=== PATIENT | female | born 1990 | race Caucasian/White ===

== ENCOUNTER → 2024-08-25 | Outpatient (CLI) | payer BC ==
[2024-08-25 13:51] LABS: Alanine Aminotransferase 16 U/L (7-40); Albumin 4.4 g/dL (3.2-4.8); Alkaline Phosphatase 65 U/L (46-116); Anion Gap 5 (5-15); Aspartate Aminotransferase 10 U/L (13-40); BUN/Creatinine Ratio 8.6 (10.0-20.0); Blood Urea Nitrogen 6 mg/dL (9-23); Carbon Dioxide 28 mmol/L (20-31); Chloride 106 mmol/L (98-107); Glucose 96 mg/dL (74-106); LDL Cholesterol 147 mg/dL (< 100); Sodium 139 mmol/L (136-145); Triglycerides 157 mg/dL (< 150)
[2024-08-25 13:52] LABS: Bilirubin, Total 0.4 mg/dL (0.2-1.0); Cholesterol 193 mg/dL (< 200); HDL Cholesterol 38 mg/dL (40-59)
== END | disposition home or self-care (01) ==
LOC: LAB 12:30
PROVIDERS: ATTEND Nurse Practitioner
DX: E78.5 Hyperlipidemia, unspecified (principal); R73.9 Hyperglycemia, unspecified
CPT/HCPCS: 36415; 80053; 80061; 83036

== ENCOUNTER 2024-12-11 03:32 | Emergency (ER) | payer BC ==
[~2024-12-11] VITALS: Ht 154.9 cm; Wt 136.5 kg
[2024-12-11 04:09] VITALS: BP 146/96; PULSE 94; RESP 16; TEMP 99.2; O2SAT 95
[2024-12-11] MEDS ORDERED: IBUP-1456 PO (04:13)
[2024-12-11] MEDS ORDERED: CYCL-837 PO (04:13)
--- NOTE | 2024-12-11 04:13 | ED.PDOC ---
Back pain HPI HPI Comments 34-YEAR-OLD FEMALE PRESENTS TO ER WITH COMPLAINTS OF BACK PAIN X 2 HOURS. PATIENT REPORTS THAT SHE WOKE UP WITH 7/10 LEFT LOWER THORACIC BACK PAIN 2 HOURS PRIOR TO ARRIVAL TO ER. STATES THAT SHE TOOK IBUPROFEN FOR HER PAIN WITH SOME RELIEF. PATIENT PRESENTS TO ER AMBULATORY ON ARRIVAL, WITH STEADY GAIT, IN NO DISTRESS. DENIES FEVER, BODY ACHES, CHILLS, NIGHT SWEATS, TRAUMA/FALLS/HEAVY LIFTING, NAUSEA/VOMITING, NUMBNESS/TINGLING, SHORTNESS OF BREATH, CHEST PAIN, EXTREMITY WEAKNESS, CHANGES IN URINATION/BM OR ANY FURTHER SYMPTOMS/COMPLAINTS Chief Complaint: Back Pain Time Seen by MD: 03:33 Primary Care Provider: Dr. Shah Reviewed Notes: Nurses Notes, Medications, Allergies Allergies: Coded Allergies: NO KNOWN ALLERGIES (Unverified , 12/11/24) Home Meds Active Scripts Ibuprofen (Ibuprofen) 800 Mg Tab, 1 TAB PO TID PRN, #30 TAB 0 Refills Prov:TONNY REED 12/11/24 Cyclobenzaprine Hcl (Cyclobenzaprine Hcl) 5 Mg Tab, 1 TAB PO QHSP, #14 TAB 0 Refills Prov:TONNY REED 12/11/24 Information Source: Patient Mode of Arrival: Ambulatory Past Medical History PAST MEDICAL HISTORY: Anemia, Asthma Surgical History: Denies all surgeries FILLING TECHNICIAN History: No Pertinent FILLING TECHNICIAN History Family History Family History: Unknown Social History Smoker: Non-Smoker Alcohol: Occasionally Drugs: Denies Drug Use Lives In: Home Constitutional: denies: chills, diaphoresis, fatigue, fever, malaise, sweats, weakness, others EENTM: denies: blurred vision, double vision, ear bleeding, ear discharge, ear drainage, ear pain, ear ringing, eye pain, eye redness, hearing loss, mouth pain, mouth swelling, nasal discharge, nose bleeding, nose congestion, nose pain, photophobia, tearing, throat pain, throat swelling, voice changes, others Respiratory: denies: cough, hemoptysis, orthopnea, SOB at rest, shortness of breath, SOB with excertion, stridor, wheezing, others Cardiovascular: denies: chest pain, dizzy spells, diaphoresis, Dyspnea on exertion, edema, irregular heart beat, left arm pain, lightheadedness, palpitations, PND, syncope, others Gastrointestinal: denies: abdomen distended, abdominal pain, blood streaked bowels, constipated, diarrhea, dysphagia, difficulty swallowing, hematemesis, melena, nausea, poor appetite, poor fluid intake, rectal bleeding, rectal pain, vomiting, others Genitourinary: denies: abnormal vagina bleeding, burning, dyspareunia, dysuria, flank pain, frequency, hematuria, incontinence, pain, , vagina disc harge, urgency, others Neurological: denies: dizziness, fainting, headache, left sided numbness, left sided weakness, numbness, paresthesia, pre-existing deficit, right sided numbness, right sided weakness, seizure, speech problems, tingling, tremors, weakness, others Musculoskeletal: reports: others ( STATED IN HPI) Integumetry: denies: bruises, change in color, change in hair/nails, dryness, laceration, lesions, lumps, rash, wounds, others Allergic/Immunocompromised: denies: Difficulty Healing, Frequent Infections, Hives, Itching, others Hematologic/Lymphatic: denies: anemia, blood clots, easy bleeding, easy bruising, swollen glands, others Endocrine: denies: excessive hunger, excessive sweating, excessive thirst, excessive urination, flushing, intolerance to cold, intolerance to heat, unexplained weight gain, unexplained weight loss, others Psychiatric: denies: anxiety, bipolar disorder, depression, hopeless, panic disorder, schizophrenia, sleepless, suicidal, others Physical Exam General Appearance: No Apparent Distress, Obese HEENT: PERRL/EOMI Neck: Full Range of Motion, Non-Tender, Normal Respiratory: Chest Non-Tender, Lungs Clear, No Accessory Muscle Use, No Respiratory Distress, Normal Breath Sounds Cardiovascular: No Murmur, No Gallop, Regular Rate/Rhythm Breast Exam: Deferred Gastrointestinal: Non Tender, No Pulsatile Mass, Soft Genitalia: Deferred Pelvic: Deferred Rectal: Deferred Extremities: Normal capillary refill, Normal range of motion Musculoskeletal : Extremity Location: Back (SLIGHT TTP TO LEFT LOWER THORACIC PARASPINALS NOTED. NO BONY TENDERNESS APPRECIATED. GAIT INTACT WITHOUT ABNORMALITY) Neurologic: Alert, plant operations coordinator II-XII nml as Tested, No Motor Deficits, Normal Affect, Normal Mood, No Sensory Deficits Cerebellar Function: Normal Reflexes: Normal Skin: Dry, Normal Color, Warm Peripheral Pulses: 2+ femoral (R), 2+ femoral (L), 2+ dorsalis pedis (R), 2+ dorsalis pedis (L), 2+ Radial (R), 2+ Radial (L), 2+ Brachial (R), 2+ Brachial (L) Lymphatic: No Adenopathy Was a procedure done? Was a procedure done?: No Sedation Sedation?: No Back Pain Differential Dx Differential Diagnosis: AAA, Fracture, Urolithiasis, Other (NEUROVASCULAR INJURY) X-Ray, Labs, Meds, VS Vital Signs Date Time Temp Pulse Resp B/P (MAP) Pulse Ox O2 Delivery O2 Flow Rate FiO2 12/11/24 04:09 99.2 94 16 146/96 (113) 95 99.2 12/11/24 04:09 94 16 95 Room Air 12/11/24 03:52 99.2 94 16 146/96 (113) 95 TORADOL 60 MG IM ORDERED PATIENT REPORTED IMPROVEMENT IN SYMPTOMS AND IN NO DISTRESS PRIOR TO DISCHARGE ADVISED ON REST/NO STRENUOUS ACTIVITY ADVISED TO FOLLOW UP WITH PCP IN 1-2 DAYS PATIENT VERBALIZED UNDERSTANDING AND AGREEABLE WITH CURRENT PLAN OF CARE ADVISED TO RETURN TO ER IMMEDIATELY IF SYMPTOMS WORSEN Time of 1ST Reevaluation: 03:54 Reevaluation 1ST: N/A Patient Education/Counseling: Diagnosis, Treatment, Prognosis, Need For Follow Up Family Education/Counseling: No Family Present Departure 1 Departure Time of Disposition: 04:12 Impression: Primary Impression: Strain of thoracic spine Disposition: 01 HOME / SELF CARE / HOMELESS Condition: Stable e-Prescriptions Ibuprofen (Ibuprofen) 800 Mg Tab 1 TAB PO TID PRN, #30 TAB 0 Refills Prov: TONNY REED 12/11/24 Cyclobenzaprine Hcl (Cyclobenzaprine Hcl) 5 Mg Tab 1 TAB PO QHSP, #14 TAB 0 Refills Prov: TONNY REED 12/11/24 Discharged With: Self Critical Care Note Critical Care Time?: No Stability Stability form required: No Heart Score Heart Score: Heart Score Response (Comments) Value History N/A 0 EKG N/A 0 Age N/A 0 Risk Factors N/A 0 Troponin N/A 0 Total 0 TONNY REED Dec 11, 2024 04:13
[2024-12-11] MEDS: KETOROLAC TROMETH 60MG/2ML VIAL IM ONE (04:16)
[2024-12-12] MEDS ORDERED: OMEP-434 PO (22:19)
[2024-12-12] MEDS ORDERED: MONT-8 PO (22:19)
[2024-12-12] MEDS ORDERED: LISI20TA56 PO (22:19)
== END 2024-12-11 04:21 | disposition home or self-care (01) ==
LOC: ER 03:32
DX: S29.012A Strain of muscle and tendon of back wall of thorax, initial encounter (principal); J45.909 Unspecified asthma, uncomplicated; X58.XXXA Exposure to other specified factors, initial encounter; Y93.89 Activity, other specified; Y92.89 Other specified places as the place of occurrence of the external cause; Y99.8 Other external cause status
CPT/HCPCS: 96372; 99283; J1885

== ENCOUNTER 2024-12-12 14:02 | Inpatient (IN) | payer BC ==
[~2024-12-12] VITALS: Ht 154.9 cm; Wt 139.6 kg
[~2024-12-12 14:02] MED LIST: CYCL-837 PO; IBUP-1456 PO
--- NOTE | 2024-12-12 15:08 | ED.PDOC ---
Back pain HPI HPI Comments A 34 YEAR OLD FEMALE PRESENTS TO THE ED WITH COMPLAINT OF MIDDLE BACK PAIN. PATIENT STATES SHE HAS BEEN EXPERIENCING MIDDLE BACK PAIN FOR THE PAST 2 DAYS. PT WAS IN THIS ER YESTERDAY MORNING AND WAS GIVEN MOTRIN AND MUSCLE RELAX MEDICATION. PATIENT REPORTS SHE BEGAN TO EXPERIENCE EPIGASTRIC PAIN THAT RADIATES TO HER MIDDLE BACK TODAY, PROMPTING HER TO COME TO THE ED FOR EVALUATION ONCE AGAIN. MOTRIN AND MUSCLE RELAX MEDICATION DOES NOT HELP HER MIDDLE BACK PAIN AND EPIGASTRIC PAIN. PATIENT DENIES FEVER, CHILLS, SHORTNESS OF BREATH, CHEST PAIN, NAUSEA, VOMITING, HEADACHE, OR OTHER COMPLAINTS. NO OTHER SYMPTOMS OR MODIFYING FACTORS AT THIS TIME. PATIENT IS ALERT, ORIENTED X 4, AND HAS STEADY GAIT. Chief Complaint: Back Pain Time Seen by MD: 14:14 Primary Care Provider: ZOE Wilson Notes: Nurses Notes, Medications, Allergies Allergies: Coded Allergies: NO KNOWN ALLERGIES (Unverified , 12/11/24) Home Meds Active Scripts Ibuprofen (Ibuprofen) 800 Mg Tab, 1 TAB PO TID PRN, #30 TAB 0 Refills Prov:TONNY REED 12/11/24 Cyclobenzaprine Hcl (Cyclobenzaprine Hcl) 5 Mg Tab, 1 TAB PO QHSP, #14 TAB 0 Refills Prov:TONNY REED 12/11/24 Information Source: Patient Mode of Arrival: Ambulatory Timing: Days Duration: Since onset, Days Location of Back pain: (B) Thoracic Severity: Moderate Prehospital treatment: None Quality: Aching, Cramping Onset: Spontaneous History of: None Modifying Factors: Movement Associated signs and symptoms: Abdominal Pain Past Medical History PAST MEDICAL HISTORY: Anemia, Asthma, GERD, HTN Surgical History: Denies all surgeries JET ENGINE MECHANIC History: No Pertinent JET ENGINE MECHANIC History Family History Family History: Reviewed,noncontributory to illness Social History Smoker: Non-Smoker Alcohol: Occasionally Drugs: Denies Drug Use Lives In: Home Constitutional: denies: chills, diaphoresis, fatigue, fever, malaise, sweats, weakness, others EENTM: denies: blurred vision, double vision, ear bleeding, ear discharge, ear drainage, ear pain, ear ringing, eye pain, eye redness, hearing loss, mouth pain, mouth swelling, nasal discharge, nose bleeding, nose congestion, nose pain, photophobia, tearing, throat pain, throat swelling, voice changes, others Respiratory: denies: cough, hemoptysis, orthopnea, SOB at rest, shortness of breath, SOB with excertion, stridor, wheezing, others Cardiovascular: denies: chest pain, dizzy spells, diaphoresis, Dyspnea on exertion, edema, irregular heart beat, left arm pain, lightheadedness, palpitations, PND, syncope, others Gastrointestinal: reports: abdominal pain; denies: abdomen distended, blood streaked bowels, constipated, diarrhea, dysphagia, difficulty swallowing, hematemesis, melena, nausea, poor appetite, poor fluid intake, rectal bleeding, rectal pain, vomiting, others Genitourinary: denies: abnormal vagina bleeding, burning, dyspareunia, dysuria, flank pain, frequency, hematuria, incontinence, pain, , vagina discharge, urgency, others Neurological: denies: dizziness, fainting, headache, left sided numbness, left sided weakness, numbness, paresthesia, pre-existing deficit, right sided numbness, right sided weakness, seizure, speech problems, tingling, tremors, weakness, others Musculoskeletal: reports: back pain (MIDDLE BACK PAIN); denies: gout, joint pain, joint swelling, muscle pain, muscle stiffness, neck pain, others Integumetry: denies: bruises, change in color, change in hair/nails, dryness, laceration, lesions, lumps, rash, wounds, others Allergic/Immunocompromised: denies: Difficulty Healing, Frequent Infections, Hives, Itching, others Hematologic/Lymphatic: denies: anemia, blood clots, easy bleeding, easy bruising, swollen glands, others Endocrine: denies: excessive hunger, excessive sweating, excessive thirst, excessive urination, flushing, intolerance to cold, intolerance to heat, unexplained weight gain, unexplained weight loss, others Psychiatric: denies: anxiety, bipolar disorder, depression, hopeless, panic disorder, schizophrenia, sleepless, suicidal, others All Other Systems: Reviewed and Negative Physical Exam General Appearance: No Apparent Distress, Obese HEENT: Normal ENT Inspection, PERRL/EOMI, Pharynx Normal, TMs Normal Neck: Full Range of Motion, Non-Tender, Normal, Normal Inspection Respiratory: Chest Non-Tender, Lungs Clear, No Accessory Muscle Use, No Respiratory Distress, Normal Breath Sounds Cardiovascular: No Edema, No JVD, No Murmur, No Gallop, Normal Peripheral Pulses, Regular Rate/Rhythm Breast Exam: Deferred Gastrointestinal: Epigastric, No Organomegaly, No Pulsatile Mass, Normal Bowel Sounds, Soft, Tenderness (EPIGASTRIC WITH MILD GUARDING, NO REBOUND TENDERNESS. ) Genitalia: Deferred Pelvic: Deferred Rectal: Deferred Extremities: No calf tenderness, Normal capillary refill, Normal inspection, Normal range of motion, Non-tender, No pedal edema Musculoskeletal : Location: Bilateral Extremity Location: Back Apperance: Tenderness: Moderate (MIDDLE BACK, NO REDNESS, SWELLING AND DEFORMITY. ) Neurologic: Alert, human resources psychologist II-XII nml as Tested, No Motor Deficits, Normal Affect, Normal Mood, No Sensory Deficits Cerebellar Function: Normal Reflexes: Normal Skin: Dry, Normal Color, Warm Peripheral Pulses: 2+ carotid (R), 2+ carotid (L) Lymphatic: No Adenopathy Was a procedure done? Was a procedure done?: No EKG EKG : Pulse Rate (adult): 98 [place]: Normal Block: None Hypertrophy: None ST: Normal Back Pain Differential Dx Differential Diagnosis: Cholelithiasis, Cholangitis, DJD, Musculoskeletal Pain, Pancreatits, Strain, Other (CHOLECYSTITIS) Other Differential Diagnosis MUSCLE SPASM X-Ray, Labs, Meds, VS Vital Signs Date Time Temp Pulse Resp B/P (MAP) Pulse Ox O2 Delivery O2 Flow Rate FiO2 12/12/24 15:23 99.5 100 18 155/94 (114) 97 99.5 12/12/24 15:23 100 18 97 Room Air 12/12/24 14:20 98 12/12/24 14:15 99.5 100 18 155/94 (114) 97 Lab Test 12/12/24 15:46 Range/Units White Blood Count 12.7 H 4.4-10.8 10^3/uL Red Blood Count 4.42 4.0-5.20 10^6/uL Hemoglobin 12.7 12.2-16.2 g/dL Hematocrit 37.9 36.0-46.0 % Mean Corpuscular Volume 85.7 80.0-100.0 fL Mean Corpuscular Hemoglobin 28.7 28.0-32.0 pg Mean Corpuscular Hemoglobin Concent 33.4 32.0-36.0 g/dL Red Cell Distribution Width 13.5 11.8-14.3 % Platelet Count 260 140-450 10^3/uL Mean Platelet Volume 9.3 6.9-10.8 fL Neutrophils (%) (Auto) 78.3 37.0-80.0 % Lymphocytes (%) (Auto) 14.8 10.0-50.0 % Monocytes (%) (Auto) 5.6 0.0-12.0 % Eosinophils (%) (Auto) 0.7 0.0-7.0 % Basophils (%) (Auto) 0.6 0.0-2.0 % Neutrophils # (Auto) 9.9 H 1.6-8.6 10 ^3/uL Lymphocytes # (Auto) 1.9 0.4-5.4 10 ^3/uL Monocytes # (Auto) 0.7 0-1.3 10 ^3/uL Eosinophils # (Auto) 0.1 0-0.8 10 ^3/uL Basophils # (Auto) 0.1 0-0.2 10 ^3/uL Nucleated Red Blood Cells 0.0 % Sodium Level 138 136-145 mmol/L Potassium Level 3.6 3.5-5.1 mmol/L Chloride Level 104 98-107 mmol/L Carbon Dioxide Level 25 20-31 mmol/L Anion Gap 9 5-15 Blood Urea Nitrogen 7 L 9-23 mg/dL Creatinine 0.67 0.550-1.02 mg/dL Glomerular Filtration Rate Calc 116 >90 mL/min BUN/Creatinine Ratio 10.4 10.0-20.0 Serum Glucose 113 H 74-106 mg/dL Calcium Level 10.0 8.7-10.4 mg/dL Total Bilirubin 0.5 0.2-1.0 mg/dL Aspartate Amino Transferase (AST) 11 L 13-40 U/L Alanine Aminotransferase (ALT) 22 7-40 U/L Alkaline Phosphatase 62 46-116 U/L Troponin I High Sensitivity < 3 L </=34 ng/L Total Protein 7.2 5.7-8.2 g/dL Albumin 4.7 3.2-4.8 g/dL Lipase 41 12-53 U/L Current Medications Medications (Trade) Dose Ordered Sig/Key Route Start Time Stop Time Status Last Admin Acetaminophen/ Hydrocodone Bitart ([place] 10/325MG Tab) 1 tab ONCE ONCE PO 12/12/24 15:30 12/12/24 15:31 DC 12/12/24 15:39 XY CHEST TWO VIEWS ROUTINE CLINICAL HISTORY: LEFT MIDDLE BACK PAIN COMPARISON: None TECHNIQUE: Frontal and lateral view of the chest was obtained FINDINGS: Lines and Tubes: None Lungs: No focal consolidation. Pleura: No effusion. No pneumothorax. Cardiomediastinal contours: Unremarkable Bones: No acute osseous abnormality. IMPRESSION: 1. No acute cardiopulmonary disease. HS:Y ATED BY: MECHELLE HAND Jr., DO DICTATED DATE/TIME: 12/12/241514 SIGNED BY: MECHELLE HAND Jr., SIGNED DATE/TIME: 12/12/241514 CC: ULTRASOUND ABDOMEN LIMITED INDICATION: EPIGASTRIC PAIN TECHNIQUE: Multiple real-time sonographic images of the abdomen were obtained. COMPARISON: None FINDINGS: The visualized liver parenchyma appears diffusely echogenic consistent with steatosis. . The liver measures 23.2 cm. No discrete hepatic lesion or intrahepatic biliary ductal dilatation is identified. There are multiple gallstones seen within the gallbladder including a 1.4 cm gallstone in the gallbladder neck. Gallbladder wall appears thickened measuring 6.0 mm. There is no significant pericholecystic fluid. The systems integration engineer reports a positive Geiger's sign. The common bile duct not seen. The right kidney measures 12 cm length. No sonographic evidence of nephrolithiasis or hydronephrosis. Pancreas is obscured by bowel gas. IMPRESSION: 1. Multiple gallstones in the gallbladder including a 1.4 cm gallstone in the gallbladder neck. Gallbladder wall appears thickened in the systems integration engineer reports a positive Geiger's sign. Findings are suggestive of acute cholecystitis. Clinical correlation is recommended. 2. Hepatomegaly with diffuse hepatic steatosis. HS:Y ATED BY: JOEL UGARTE MD DICTATED DATE/TIME: 12/12/241617 SIGNED BY: JOEL UGARTE MD SIGNED DATE/TIME: 12/12/241617 CC: X-Ray, Labs, Meds, VS Comment EXTERNAL MEDICAL RECORDS REVIEWED: [NONE] INDEPENDENT HISTORIANS: [NONE] SOCIAL DETERMINANTS OF HEALTH: [NONE] LABS ORDERED: CBC, CMP, LIPASE, UA, TROPONIN REVIEWED AND INTERPRETED RESULTS: IMAGING ORDERED: XR CHEST, US ABDOMEN TREATMENTS ORDERED: NS 1 L IV, ZOFRAN 4 MG IV, MORPHINE 4 MG IV, ROCEPHIN 1 G IV, FLAGYL 500 MG IV PROCEDURES PERFORMED: NONE CRITICAL CARE TIME: NONE I HAVE DISCUSSED THE PATIENT WITH THE ATTENDING PHYSICIAN DR. DOSS AND HE AGREES WITH THE PATIENT'S PLAN OF CARE. UPON MY PHYSICAL EXAMINATION, THE PATIENT WAS GEIGER SIGN POSITIVE AND HAD GUARDING NOTED UPON PALPATION TO HER EPIGASTRIC REGION, BUT WAS IN NO RESPIRATORY DISTRESS AT THIS TIME. MY DIFFERENTIAL DIAGNOSIS INCLUDES, CHOLELITHIASIS, CHOLECYSTITIS, PANCREATITIS, ACUTE UTI, ACUTE CYSTITIS, [place], ANXIETY REACTION, MUSCLE STRAIN. AN ULTRASOUND WAS DONE FOR THE PATIENT WHICH REVEALED CHOLELITHIASIS WITH FINDINGS CONSISTENT WITH ACUTE CHOLECYSTITIS. PATIENT WAS MEDICATED HERE IN THE ED WITH 1 L NORMAL SALINE IV, ZOFRAN 4 MG IV, MORPHINE 4 MG IV, ROCEPHIN 1 G IV, AND FLAGYL 500 MG IV. DUE TO THE PATIENT'S ULTRASOUND RESULTS I HAVE DETERMINED THE PATIENT NEEDS TO BE ADMITTED FOR FURTHER TREATMENT AND EVALUATION. THE ON-CALL HOSPITALIST WILL BE CONTACTED FOR ADMISSION OF THIS PATIENT. Images Reviewed?: Images reviewed and evaluated by me Time of 1ST Reevaluation: 17:00 Reevaluation 1ST: Unchanged Patient Education/Counseling: Diagnosis, Treatment Family Education/Counseling: Diagnosis, Treatment Departure 1 Departure Time of Disposition: 17:00 Impression: Primary Impression: Cholelithiasis with acute cholecystitis Qualified Codes: K80.00 - Calculus of gallbladder with acute cholecystitis without obstruction Disposition: ADMITTED INPATIENT Condition: Serious Critical Care Note Critical Care Time?: No Stability Stability form required: Yes Unstable for transfer: Requires medication, ED Physician Assesment, Possible rapid decline Heart Score Heart Score: Heart Score Response (Comments) Value History N/A 0 EKG N/A 0 Age N/A 0 Risk Factors N/A 0 Troponin N/A 0 Total 0 I personally scribed for NAS PUENTE ([email or web address]) on 12/12/24 at 15:08. Electronically submitted by Sushant Springer ([email or web address]). I personally scribed for NAS PUENTE ([email or web address]) on 12/12/24 at 15:25. Electronically submitted by Sushant Springer ([email or web address]). I personally scribed for NAS PUENTE ([email or web address]) on 12/12/24 at 15:40. Electronically submitted by Sushant Springer ([email or web address]). I personally scribed for NAS PUENTE ([email or web address]) on 12/12/24 at 16:46. Electronically submitted by Sushant Springer ([email or web address]). NAS PUENTE Dec 12, 2024 15:08
--- NOTE | 2024-12-12 15:17 | DVH ---
XY CHEST TWO VIEWS ROUTINE CLINICAL HISTORY: LEFT MIDDLE BACK PAIN COMPARISON: None TECHNIQUE: Frontal and lateral view of the chest was obtained FINDINGS: Lines and Tubes: None Lungs: No focal consolidation. Pleura: No effusion. No pneumothorax. Cardiomediastinal contours: Unremarkable Bones: No acute osseous abnormality. IMPRESSION: 1. No acute cardiopulmonary disease. HS:Y
[2024-12-12] MEDS: HYDROcodone-ACET 10/325MG TAB PO ONE (15:39)
[2024-12-12 16:03] LABS: Basophils # (auto) 0.1 10 ^3/uL (0-0.2); Basophils % (auto) 0.6 % (0.0-2.0); Eosinophils # (auto) 0.1 10 ^3/uL (0-0.8); Eosinophils % (auto) 0.7 % (0.0-7.0); Hematocrit 37.9 % (36.0-46.0); Hemoglobin 12.7 g/dL (12.2-16.2); Lymphocytes # (auto) 1.9 10 ^3/uL (0.4-5.4); Lymphocytes % (auto) 14.8 % (10.0-50.0); Mean Corpuscular Hemoglobin 28.7 pg (28.0-32.0); Mean Corpuscular Hgb Conc. 33.4 g/dL (32.0-36.0); Mean Corpuscular Volume 85.7 fL (80.0-100.0); Monocytes # (auto) 0.7 10 ^3/uL (0-1.3); Monocytes % (auto) 5.6 % (0.0-12.0); Neutrophils # (auto) 9.9 10 ^3/uL (1.6-8.6); Neutrophils % (auto) 78.3 % (37.0-80.0); Platelet Count (auto) 260 10^3/uL (140-450); Red Blood Cells 4.42 10^6/uL (4.0-5.20); Red Cell Distribution Width 13.5 % (11.8-14.3); White Blood Cell 12.7 10^3/uL (4.4-10.8)
--- NOTE | 2024-12-12 16:20 | DVH ---
ULTRASOUND ABDOMEN LIMITED INDICATION: EPIGASTRIC PAIN TECHNIQUE: Multiple real-time sonographic images of the abdomen were obtained. COMPARISON: None FINDINGS: The visualized liver parenchyma appears diffusely echogenic consistent with steatosis. . The live r measures 23.2 cm. No discrete hepatic lesion or intrahepatic biliary ductal dilatation is iden tified. There are multiple gallstones seen within the gallbladder including a 1.4 cm gallstone in the gallbla dder neck. Gallbladder wall appears thickened measuring 6.0 mm. There is no significant pericholecys tic fluid. The heat treat technician reports a positive Geiger's sign. The common bile duct not seen. The right kidney measures 12 cm length. No sonographic evidence of nephrolithiasis or hydronephrosi s. Pancreas is obscured by bowel gas. IMPRESSION: 1. Multiple gallstones in the gallbladder including a 1.4 cm gallstone in the gallbladder neck. Gallb ladder wall appears thickened in the heat treat technician reports a positive Geiger's sign. Findings are sugge stive of acute cholecystitis. Clinical correlation is recommended. 2. Hepatomegaly with diffuse hepatic steatosis. HS:Y
[2024-12-12] MEDS: SODIUM CHLORIDE 0.9% 1,000 ML IV ONE (16:30)
[2024-12-12] MEDS: cefTRIAXone 1GM/50ML D5W 50 ML IV ONE (16:30)
[2024-12-12 16:41] LABS: Alanine Aminotransferase 22 U/L (7-40); Albumin 4.7 g/dL (3.2-4.8); Alkaline Phosphatase 62 U/L (46-116); Anion Gap 9 (5-15); BUN/Creatinine Ratio 10.4 (10.0-20.0); Carbon Dioxide 25 mmol/L (20-31); Chloride 104 mmol/L (98-107); Lipase 41 U/L (12-53); Potassium 3.6 mmol/L (3.5-5.1); Sodium 138 mmol/L (136-145); Total Protein 7.2 g/dL (5.7-8.2)
[2024-12-12 16:42] LABS: Bilirubin, Total 0.5 mg/dL (0.2-1.0)
[2024-12-12 16:46] LABS: Aspartate Aminotransferase 11 U/L (13-40); Blood Urea Nitrogen 7 mg/dL (9-23); Glucose 113 mg/dL (74-106)
[2024-12-12] MEDS: metroNIDAZOLE 500MG/100ML 100 ML IV ONE (20:33)
[2024-12-12] MEDS: ONDANSETRON HCL 4 MG/2 ML VIAL IV ONE (20:33)
[2024-12-12] MEDS: MORPHINE SULFATE 4 MG/ML SYR/VIAL IV ONE (20:33)
[2024-12-12 21:31] VITALS: BP 128/86; PULSE 78; RESP 18
[2024-12-12] MEDS ORDERED: ACETAMINOPHEN 325 MG TAB PO PRN (22:15)
[2024-12-12] MEDS ORDERED: ONDANSETRON HCL 4 MG/2 ML VIAL IV PRN (22:15)
[2024-12-12] MEDS ORDERED: MONT-8 PO (22:19)
[2024-12-12] MEDS ORDERED: LISI20TA56 PO (22:19)
[2024-12-12] MEDS ORDERED: OMEP-434 PO (22:19)
[2024-12-12] MEDS: SODIUM CHLORIDE 0.9% 1,000 ML IV SCH (22:28)
--- NOTE | 2024-12-12 22:53 | DVHHPRES ---
History of Present Illness Resident Creating Document: NITISH FARFAN RESIDENT History of Present Illness Romina Zapien Mackenzie 34 years old female with a PMH of asthma, hypertension, GERD presented to the ED with the chief complaints of epigastric pain. Patient reported on midnight she woke up with lower back pain, visited ED, given pain medication but the pain did not to leave again the penis sharp, constant in the epigastric region associated with nausea and going to back which prompted a visit ED again. Patient reported she never experienced symptoms like this before. On my assessment patient denies fever, chest pain, diaphoresis, palpitations, diarrhea, constipation and other acute associated symptoms PMH: Asthma, HTN for 3 months, GERD PSH: Cyst removal and tailbone Social history: Reviewed, noncontributory Present history: Lives with family. Denies smoking, alcohol and other drug abuse Allergies: No known allergies Home medications: Lisinopril 20 mg, omeprazole 40 Review of Systems Constitutional: Yes: Weakness Eyes: No: Pain, Vision change, Conjunctivae inflammation, Eyelid inflammation, Other, Redness ENT: No: Ear pain, Ear discharge, Nose pain, Nose discharge, Nose congestion, Mouth pain, Mouth swelling, Throat pain, Throat swelling, Other Respiratory: No: Cough, Dry, Shortness of breath, SOB with excertion, Wheezing, Hemoptysis, Pleuritic Pain, Sputum, Wheezing, Other Cardiovascular: No: Chest Pain, Palpitations, Orthopnea, Paroxysmal Noc. Dyspnea, Edema, Lt Headedness, Other Gastrointestinal: Nausea, Abdominal Pain, Other (RUQ and epigastric pain) Genitourinary: No Dysuria, No Frequency, No Incontinence, No Hematuria, No Retention, No Other Musculoskeletal: No: other, neck pain, shoulder pain, arm pain, back pain, hand pain, leg pain, foot pain Skin: No: Rash, Lesions, Jaundice, Bruising, Other Neurological: No: Weakness, Numbness, Incoordination, Change in speech, Confusion, Seizures, Other Allergies: Coded Allergies: NO KNOWN ALLERGIES (Unverified , 12/11/24) Medications Current Medications Medications Dose Ordered Sig/Key Route Start Time Stop Time Status Last Admin Dose Admin Sodium Chloride 10 ml Q8HR IV 12/13/24 06:00 Sodium Chloride 1,000 ml @ 120 mls/hr Q8H20M IV 12/12/24 22:15 12/12/24 22:28 120 MLS/HR Ondansetron HCl 4 mg Q4HP PRN IV 12/12/24 22:15 Acetaminophen 650 mg Q6HP PRN PO 12/12/24 22:15 Morphine Sulfate 2 mg Q4HPRN PRN IV 12/12/24 22:15 Exam Vital Signs Vital Signs Date Time Temp Pulse Resp B/P (MAP) Pulse Ox O2 Delivery O2 Flow Rate FiO2 12/12/24 21:31 78 18 128/86 (100) 12/12/24 21:08 99.0 99 99.0 12/12/24 15:23 Room Air Exam General Appearance: Alert, Oriented X3, Cooperative, Not in acute distress HEENT: Atraumatic, Mucous membranes moist/pink Respiratory: Clear to auscultation, Normal air movement, No added sounds Cardiovascular: Regular rate, Normal S1, Normal S2, No murmurs Abdominal: Epigastric and right upper quadrant tenderness. Active bowel sounds, Soft, no distention, Extremities: No edema, Normal pulses, No tenderness/swelling Skin: No Significant rash, except past surgical scars Neuro: Normal speech, sensorimotor deficits none Psych/Mental Status: Mental status NL, Mood NL Nurse was there as sharperone during examination Labs/Xrays Labs Test 12/12/24 22:24 12/12/24 15:46 Range/Units White Blood Count 12.7 H 4.4-10.8 10^3/uL Red Blood Count 4.42 4.0-5.20 10^6/uL Hemoglobin 12.7 12.2-16.2 g/dL Hematocrit 37.9 36.0-46.0 % Mean Corpuscular Volume 85.7 80.0-100.0 fL Mean Corpuscular Hemoglobin 28.7 28.0-32.0 pg Mean Corpuscular Hemoglobin Concent 33.4 32.0-36.0 g/dL Red Cell Distribution Width 13.5 11.8-14.3 % Platelet Count 260 140-450 10^3/uL Mean Platelet Volume 9.3 6.9-10.8 fL Neutrophils (%) (Auto) 78.3 37.0-80.0 % Lymphocytes (%) (Auto) 14.8 10.0-50.0 % Monocytes (%) (Auto) 5.6 0.0-12.0 % Eosinophils (%) (Auto) 0.7 0.0-7.0 % Basophils (%) (Auto) 0.6 0.0-2.0 % Neutrophils # (Auto) 9.9 H 1.6-8.6 10 ^3/uL Lymphocytes # (Auto) 1.9 0.4-5.4 10 ^3/uL Monocytes # (Auto) 0.7 0-1.3 10 ^3/uL Eosinophils # (Auto) 0.1 0-0.8 10 ^3/uL Basophils # (Auto) 0.1 0-0.2 10 ^3/uL Nucleated Red Blood Cells 0.0 % Sodium Level 138 136-145 mmol/L Potassium Level 3.6 3.5-5.1 mmol/L Chloride Level 104 98-107 mmol/L Carbon Dioxide Level 25 20-31 mmol/L Anion Gap 9 5-15 Blood Urea Nitrogen 7 L 9-23 mg/dL Creatinine 0.67 0.550-1.02 mg/dL Glomerular Filtration Rate Calc 116 >90 mL/min BUN/Creatinine Ratio 10.4 10.0-20.0 Serum Glucose 113 H 74-106 mg/dL Calcium Level 10.0 8.7-10.4 mg/dL Total Bilirubin 0.5 0.2-1.0 mg/dL Aspartate Amino Transferase (AST) 11 L 13-40 U/L Alanine Aminotransferase (ALT) 22 7-40 U/L Alkaline Phosphatase 62 46-116 U/L Troponin I High Sensitivity < 3 L </=34 ng/L Total Protein 7.2 5.7-8.2 g/dL Albumin 4.7 3.2-4.8 g/dL Lipase 41 12-53 U/L Thyroid Stimulating Hormone (TSH) 1.54 0.55-4.78 uIU/mL Assessment/Plan Assessment/Plan # acute cholecystitis # acute cholelithiasis # R/o SIRS vs Sepsis -admitted to [facility] – [place] -currently giving Rocephin and Flagyl -NPO status and give IVF -pain management as needed -surgical consult -GB ultrasound showed gallstones with possible cholecystitis -ordered blood and urine culture # morbid obesity with a BMI 55.9 # hepatic steatosis -counseled regarding lifestyle modifications # uncontrolled hypertension -resumed home meds -monitor continuously # GERD - Protonix Protonix Patient is ambulatory NPO status Goals of care discussed with the patient for more than 29 minutes: Full code status Case discussed with Dr. Shah, patient and nurse Plan discussed with: Patient My Orders Orders - NITISH FARFAN RESIDENT Procedure Category Date Status Time Admit ADMIT 12/12/24 Transmitted 22:06 Allergies MARYANN 12/12/24 In Process 22:06 Code Status CODE 12/12/24 Transmitted 22:06 Sodium Chloride Lock PHA 12/13/24 In Process (Saline Lock Ns) 06:00 Sodium Chloride 0.9% PHA 12/12/24 In Process 22:15 Ondansetron Hcl PHA 12/12/24 In Process (Zofran) 22:15 Complete Blood Count LAB 12/13/24 Verified 04:00 Comprehensive LAB 12/13/24 Verified Metabolic Panel 04:00 Npo (Nothing By DIET 12/13/24 Transmitted Mouth) Diet Breakfast Condition: Stable MARYANN 12/12/24 In Process 22:06 Acetaminophen Tablet PHA 12/12/24 In Process (Tylenol Tablet) 22:15 Morphine Sulfate PHA 12/12/24 In Process Injection 22:15 Sequential MARYANN 12/12/24 In Process Compression Device Ammonia LAB 12/12/24 In Process 22:06 Blood Alcohol LAB 12/12/24 In Process 22:06 Covid19 Antigen Shabana LAB 12/12/24 Logged Drug Screen LAB 12/12/24 Logged 22:06 Magnesium LAB 12/12/24 In Process 22:06 PTPTT LAB 12/12/24 In Process 22:06 Rapid Influenza A&B LAB 12/12/24 Logged 22:06 Urinalysis LAB 12/12/24 Logged 22:06 Metronidazole PHA 12/13/24 Logged 500mg/100ml (Flagyl 06:00 * Surgical Consult CONS 12/12/24 Transmitted Ceftriaxone 1gm/50ml PHA 12/13/24 Logged D5w (Rocephin) 09:00 Lisinopril Tablet PHA 12/13/24 Logged (Zestril Tablet) 10:00 Blood Culture SHARMILA 12/12/24 Logged 22:49 Urine Bacterial SHARMILA 12/12/24 Logged Culture 22:49 Hydralazine Injection PHA 12/12/24 Logged (Apresoline Inject 23:00 Date of Service: Dec 12, 2024 Billing Provider: REBEKAH SHAH MD Common Visit Codes: [id number] INP/OBS CARE (HIGH) NITISH FARFAN RESIDENT Dec 12, 2024 22:53 REBEKAH SHAH MD Dec 15, 2024 10:24
[2024-12-12 22:58] LABS: INR 1.03 (0.9-1.15); Partial Thromboplastin Time 26.6 SEC (24.5-34.5); Prothrombin Time 10.9 sec (9.3-11.8)
[2024-12-12 23:00] LABS: Magnesium 1.7 mg/dL (1.6-2.6)
[2024-12-12] MEDS ORDERED: hydrALAZINE HCL 20 MG/ML VL IV PRN (23:00)
[2024-12-13] VITALS (7 sets, daily range): BP systolic 117–156; BP diastolic 79–100; PULSE 99–109; RESP 17–20; TEMP 97.6–99.9; O2SAT 92–98
[2024-12-13 00:17] LABS: COVID19 ANTIGEN SOFIA FIA NEGATIVE (NEGATIVE)
[2024-12-13 00:18] LABS: Rapid Influenza A Negative (Negative); Rapid Influenza B Negative (Negative)
[2024-12-13] MEDS: MORPHINE SULFATE INJ 2 MG/ml SYRG IV PRN (01:04)
[2024-12-13 04:16] LABS: Urine Bacteria None Seen /hpf (None Seen)
[2024-12-13 04:48] LABS: Urine Blood Negative /uL (Negative); Urine Clarity Clear (Clear); Urine Color Light-Yellow (Yellow); Urine Mucus FEW (None Seen); Urine Protein, UAD Negative (Negative); Urine Specific Gravity 1.015 (1.001-1.035); Urine Squamous Epithelial Cell FEW /hpf (<5); Urine Urobilinogen Normal (Negative); Urine WBC < 1 /HPF (0-5); Urine pH 6.5 (5.0-9.0)
[2024-12-13 05:02] LABS: Amphetamine Screen, Urine Neg (NEGATIVE); Barbiturate Scree,Urine Neg (NEGATIVE); Benzodiazephine Screen, Urine Neg (NEGATIVE); Cannabinoid Screen, Urine Neg (NEGATIVE); Cocaine Screen, Urine Neg (NEGATIVE); Opiate Scree,Urine Pos (NEGATIVE); Phencyclidine Screen, Urine Neg (NEGATIVE)
[2024-12-13] MEDS: metroNIDAZOLE 500MG/100ML 100 ML IV SCH (06:00)
[2024-12-13] MEDS: SODIUM CHLOR 0.9% PF (SALINE LOCK) 10ML VIAL/SYR IV SCH (06:00)
[2024-12-13 06:32] LABS: Basophils # (auto) 0 10 ^3/uL (0-0.2); Basophils % (auto) 0.2 % (0.0-2.0); Eosinophils # (auto) 0 10 ^3/uL (0-0.8); Eosinophils % (auto) 0.4 % (0.0-7.0); Hematocrit 38.5 % (36.0-46.0); Hemoglobin 12.8 g/dL (12.2-16.2); Lymphocytes % (auto) 16.6 % (10.0-50.0); Mean Corpuscular Hemoglobin 28.9 pg (28.0-32.0); Mean Corpuscular Hgb Conc. 33.2 g/dL (32.0-36.0); Monocytes # (auto) 0.8 10 ^3/uL (0-1.3); Monocytes % (auto) 6.7 % (0.0-12.0); Neutrophils # (auto) 9.2 10 ^3/uL (1.6-8.6); Neutrophils % (auto) 76.1 % (37.0-80.0); Nucleated Red Blood Cells % 0.1 %; Platelet Count (auto) 228 10^3/uL (140-450); Red Blood Cells 4.42 10^6/uL (4.0-5.20); Red Cell Distribution Width 13.7 % (11.8-14.3); White Blood Cell 12.1 10^3/uL (4.4-10.8)
[2024-12-13 06:53] LABS: Alanine Aminotransferase 17 U/L (7-40); Alkaline Phosphatase 65 U/L (46-116); Anion Gap 11 (5-15); BUN/Creatinine Ratio 8.5 (10.0-20.0); Calcium 9.4 mg/dL (8.7-10.4); Carbon Dioxide 23 mmol/L (20-31); Chloride 105 mmol/L (98-107); Potassium 3.7 mmol/L (3.5-5.1); Sodium 139 mmol/L (136-145); Total Protein 7.3 g/dL (5.7-8.2)
[2024-12-13 06:54] LABS: Albumin 4.7 g/dL (3.2-4.8)
[2024-12-13 06:55] LABS: Bilirubin, Total 0.6 mg/dL (0.2-1.0)
[2024-12-13 06:56] LABS: Aspartate Aminotransferase 10 U/L (13-40); Blood Urea Nitrogen 6 mg/dL (9-23); Glucose 112 mg/dL (74-106)
[2024-12-13] MEDS: LISINOPRIL 20 MG TAB PO SCH (08:51)
[2024-12-13] MEDS: cefTRIAXone 1GM/50ML D5W 50 ML IV SCH (08:52)
--- NOTE | 2024-12-13 10:12 | DVHPN2 ---
Subjective Continue to complain of abdominal pain Reviewed: Care Plan, H&P, Labs, Medications, Previous Orders, Radiology, Other (Consultation) Changes from previous H/P or p: No Changes Objective Vitals Vital Signs Date Time Temp Pulse Resp B/P (MAP) Pulse Ox O2 Delivery O2 Flow Rate FiO2 12/13/24 09:01 99.5 109 18 156/97 (116) 95 99.5 12/13/24 08:59 Room Air* 0 21 Intake/Output Intake and Output 12/13/24 07:00 Intake Total 100 ml Balance 100 ml Intake IV Total 100 ml # Voids 2 General Appearance: Alert, Oriented X3, Cooperative, No acute distress HEENT: Atraumatic Lungs: Clear to auscultation, Normal air movement Cardiovascular: Regular rate, Normal S1, Normal S2 Abdomen: Normal bowel sounds, Soft, No tenderness, Other (Right upper quadrant tenderness) Neuro: Normal speech, Cranial nerves 3-12 NL Psych/Mental Status: Mental status NL, Mood NL Medications Current Medications Medications Dose Ordered Sig/Key Route Start Time Stop Time Status Last Admin Dose Admin Sodium Chloride 10 ml Q8HR IV 12/13/24 06:00 12/13/24 06:00 10 ML Sodium Chloride 1,000 ml @ 120 mls/hr Q8H20M IV 12/12/24 22:15 12/12/24 22:28 120 MLS/HR Ondansetron HCl 4 mg Q4HP PRN IV 12/12/24 22:15 Acetaminophen 650 mg Q6HP PRN PO 12/12/24 22:15 Morphine Sulfate 2 mg Q4HPRN PRN IV 12/12/24 22:15 12/13/24 01:04 2 MG Metronidazole 100 ml @ 100 mls/hr Q8HR IV 12/13/24 06:00 12/13/24 06:00 100 MLS/HR Ceftriaxone Sodium 50 ml @ 100 mls/hr DAILY@09 IV 12/13/24 09:00 12/13/24 08:52 100 MLS/HR Lisinopril 20 mg DAILY PO 12/13/24 10:00 12/13/24 08:51 20 MG Hydralazine HCl 10 mg Q6HP PRN IV 12/12/24 23:00 Laboratory Results Laboratory Tests 12/13/24 05:06 Chemistry Test 12/12/24 15:46 12/12/24 22:24 12/13/24 05:06 Albumin 4.7 g/dL (3.2-4.8) 4.7 g/dL (3.2-4.8) Calcium Level 10.0 mg/dL (8.7-10.4) 9.4 mg/dL (8.7-10.4) Total Protein 7.2 g/dL (5.7-8.2) 7.3 g/dL (5.7-8.2) Magnesium Level 1.7 mg/dL (1.6-2.6) Coagulation Test 12/12/24 22:24 Prothrombin Time 10.9 sec (9.3-11.8) Prothrombin Time INR 1.03 (0.9-1.15) Activated Partial Thromboplast Time 26.6 SEC (24.5-34.5) Lipid panel Test 12/12/24 15:46 Lipase 41 U/L (12-53) LFT Test 12/12/24 15:46 12/13/24 05:06 Alanine Aminotransferase (ALT) 22 U/L (7-40) 17 U/L (7-40) Alkaline Phosphatase 62 U/L (46-116) 65 U/L (46-116) Aspartate Amino Transferase (AST) 11 U/L (13-40) L 10 U/L (13-40) L Total Bilirubin 0.5 mg/dL (0.2-1.0) 0.6 mg/dL (0.2-1.0) HgA1c, TSH Test 12/12/24 15:46 Thyroid Stimulating Hormone (TSH) 1.54 uIU/mL (0.55-4.78) Urinalysis Test 12/13/24 04:00 Urine Color Light-yellow (Yellow) Urine Clarity Clear (Clear) Urine pH 6.5 (5.0-9.0) Urine Specific [place] 1.015 (1.001-1.035) Urine Protein Negative (Negative) Urine Ketones Negative (Negative) Urine Blood Negative /uL (Negative) Urine Nitrite Negative (Negative) Urine Bilirubin Negative (Negative) Urine Urobilinogen Normal mg/dL (Negative) Urine Leukocyte Esterase Negative /uL (Negative) Urine RBC None seen /hpf (0 - 4) Urine Microscopic WBC < 1 /HPF (0-5) Urine Squamous Epithelial Cells Few /hpf (<5) Urine Bacteria None seen /hpf (None Seen) Urine Mucus Few (None Seen) Urine Glucose Normal mg/dL (Normal) Labs and/or images reviewed: Labs reviewed by me, Image(s) reviewed by me Assessment/Plan Assessment/Plan A 34-year-old female patient; with multiple comorbidities; who presented to emergency department with abdominal pain #Sepsis with leukocytosis due to acute cholecystitis; continue IV antibiotics; continue monitoring #Abdominal pain due to acute cholecystitis; reviewed the available imaging studies; surgery is following; to arrange for cholecystectomy; continue pain management as indicated; continue monitoring #Essential hypertension; resume home antihypertensive medications; continue monitoring #Asthma/Allergies; not in exacerbation/flare; continue monitoring #GERD; resume home PPI; continue monitoring #Morbid obesity; counseled the patient on the importance of adopting healthy lifestyle with diet and exercise to lose weight; continue monitoring Goals of care discussed with the patient for 20 minutes; full code Late Entry. This medical document was created using an electronic medical record system with computerized dictation system. Although this document has been carefully reviewed, there might still be some phonetic and typographical errors. These areas are purely typographical due to imperfections of the software programs, and do not reflect any compromise in the patient's medical care. Plan discussed with: Patient, Other (Nurse) Date of Service: Dec 13, 2024 Billing Provider: JULIETH VARELA MD Common Visit Codes: [id number] INP/OBS CARE(HIGH) Secondary Visit Codes: [id number] CARE PLAN 30 MINUTES (20 minutes) JULIETH VARELA MD Dec 13, 2024 10:12
[2024-12-13] MEDS: DOCUSATE SOD 100 MG CAP PO PRN (17:54)
--- NOTE | 2024-12-13 18:11 | DVHINCON2 ---
Date of service: Dec 13, 2024 Family History: Asthma G8 MOTHER Cardiovascular disease G8 MOTHER FH: dementia maternal grandmother GERD G8 FATHER Gout G8 FATHER Allergies: Coded Allergies: NO KNOWN ALLERGIES (Unverified , 12/11/24) Home Meds Active Scripts Ibuprofen (Ibuprofen) 800 Mg Tab, 1 TAB PO TID PRN, #30 TAB 0 Refills Prov:TONNY REED 12/11/24 Cyclobenzaprine Hcl (Cyclobenzaprine Hcl) 5 Mg Tab, 1 TAB PO QHSP, #14 TAB 0 Refills Prov:TONNY REED 12/11/24 Reported Medications Lisinopril (Lisinopril) 20 Mg Tab, 1 TAB PO DAILY, #30 TAB 5 Refills 12/12/24 Montelukast Sodium (MONTELUKAST SODIUM) 10 Mg Tab, 1 TAB PO DAILY, #30 TAB 5 Refills 12/12/24 Omeprazole Magnesium (Omeprazole) 20 Mg Tab, 40 MG PO DAILY, TAB 12/12/24 Current Medications Current Medications Medications (Trade) Dose Ordered Sig/Key Route PRN Reason Start Time Stop Time Status Last Admin Sodium Chloride (Saline Lock Ns) 10 ml Q8HR IV 12/13/24 06:00 12/13/24 14:12 Sodium Chloride 1,000 ml @ 120 mls/hr Q8H20M IV 12/12/24 22:15 12/13/24 15:20 Ondansetron HCl (Zofran) 4 mg Q4HP PRN IV NAUSEA / VOMITING 12/12/24 22:15 Acetaminophen (Tylenol Tablet) 650 mg Q6HP PRN PO PAIN SCALE 1-3 OR TEMP>100.4 12/12/24 22:15 Morphine Sulfate 2 mg Q4HPRN PRN IV SEVERE PAIN (7-10 PAIN SCALE) 12/12/24 22:15 12/13/24 17:32 Metronidazole 100 ml @ 100 mls/hr Q8HR IV 12/13/24 06:00 12/13/24 14:00 Ceftriaxone Sodium 50 ml @ 100 mls/hr DAILY@09 IV 12/13/24 09:00 12/13/24 08:52 Lisinopril (Zestril Tablet) 20 mg DAILY PO 12/13/24 10:00 12/13/24 08:51 Hydralazine HCl (Apresoline Injection) 10 mg Q6HP PRN IV SBP>150 12/12/24 23:00 Docusate Sodium (Colace Capsule) 100 mg BIDPRN PRN PO FOR CONSTIPATION 12/13/24 17:45 12/13/24 17:54 Vital Signs Vital Signs Date Time Temp Pulse Resp B/P (MAP) Pulse Ox O2 Delivery O2 Flow Rate FiO2 12/13/24 17:32 104 18 140/84 12/13/24 17:00 98.8 96 98.8 12/13/24 08:59 Room Air* 0 21 Labs/Diagnostic Data Labs Test 12/13/24 05:06 12/13/24 04:00 12/12/24 23:30 12/12/24 22:24 Range/Units White Blood Count 12.1 H 4.4-10.8 10^3/uL Red Blood Count 4.42 4.0-5.20 10^6/uL Hemoglobin 12.8 12.2-16.2 g/dL Hematocrit 38.5 36.0-46.0 % Mean Corpuscular Volume 87.0 80.0-100.0 fL Mean Corpuscular Hemoglobin 28.9 28.0-32.0 pg Mean Corpuscular Hemoglobin Concent 33.2 32.0-36.0 g/dL Red Cell Distribution Width 13.7 11.8-14.3 % Platelet Count 228 140-450 10^3/uL Mean Platelet Volume 9.8 6.9-10.8 fL Neutrophils (%) (Auto) 76.1 37.0-80.0 % Lymphocytes (%) (Auto) 16.6 10.0-50.0 % Monocytes (%) (Auto) 6.7 0.0-12.0 % Eosinophils (%) (Auto) 0.4 0.0-7.0 % Basophils (%) (Auto) 0.2 0.0-2.0 % Neutrophils # (Auto) 9.2 H 1.6-8.6 10 ^3/uL Lymphocytes # (Auto) 2.0 0.4-5.4 10 ^3/uL Monocytes # (Auto) 0.8 0-1.3 10 ^3/uL Eosinophils # (Auto) 0 0-0.8 10 ^3/uL Basophils # (Auto) 0 0-0.2 10 ^3/uL Nucleated Red Blood Cells 0.1 % Sodium Level 139 136-145 mmol/L Potassium Level 3.7 3.5-5.1 mmol/L Chloride Level 105 98-107 mmol/L Carbon Dioxide Level 23 20-31 mmol/L Anion Gap 11 5-15 Blood Urea Nitrogen 6 L 9-23 mg/dL Creatinine 0.71 0.550-1.02 mg/dL Glomerular Filtration Rate Calc 113 >90 mL/min BUN/Creatinine Ratio 8.5 L 10.0-20.0 Serum Glucose 112 H 74-106 mg/dL Calcium Level 9.4 8.7-10.4 mg/dL Total Bilirubin 0.6 0.2-1.0 mg/dL Aspartate Amino Transferase (AST) 10 L 13-40 U/L Alanine Aminotransferase (ALT) 17 7-40 U/L Alkaline Phosphatase 65 46-116 U/L Total Protein 7.3 5.7-8.2 g/dL Albumin 4.7 3.2-4.8 g/dL Beta HCG, Quantitative 0.1 L 1.5-4.2 mIU/mL Urine Color Light-yellow Yellow Urine Clarity Clear Clear Urine pH 6.5 5.0-9.0 Urine Specific [place] 1.015 1.001-1.035 Urine Protein Negative Negative Urine Ketones Negative Negative Urine Blood Negative Negative /uL Urine Nitrite Negative Negative Urine Bilirubin Negative Negative Urine Urobilinogen Normal Negative mg/dL Urine Leukocyte Esterase Negative Negative /uL Urine RBC None seen 0 - 4 /hpf Urine Microscopic WBC < 1 0-5 /HPF Urine Squamous Epithelial Cells Few <5 /hpf Urine Bacteria None seen None Seen /hpf Urine Mucus Few None Seen Urine Glucose Normal Normal mg/dL Urine Opiates Screen Pos NEGATIVE Urine Fentanyl Screen Neg NEGATIVE Urine Barbiturates Screen Neg NEGATIVE Urine Phencyclidine Screen Neg NEGATIVE Urine Amphetamines Screen Neg NEGATIVE Urine Benzodiazepines Screen Neg NEGATIVE Urine Cocaine Screen Neg NEGATIVE Urine Cannabinoids Screen Neg NEGATIVE Influenza Type A Antigen Negative Negative Influenza Type B Antigen Negative Negative SARS-CoV-2 Antigen (Rapid) Negative NEGATIVE Prothrombin Time 10.9 9.3-11.8 sec Prothrombin Time INR 1.03 0.9-1.15 Activated Partial Thromboplast Time 26.6 24.5-34.5 SEC Magnesium Level 1.7 1.6-2.6 mg/dL Ammonia < 10 L 11-32 umol/L Plasma/Serum Blood Alcohol 4.0 <10 mg/dL Test 12/12/24 15:46 Range/Units Troponin I High Sensitivity < 3 L </=34 ng/L Lipase 41 12-53 U/L Thyroid Stimulating Hormone (TSH) 1.54 0.55-4.78 uIU/mL Microbiology Date/Time Source Procedure Growth Status 12/12/24 22:35 Nose MRSA Screen - Final Complete Assessment [id number] R/O AC CHOLECYSTITIS CONSIDER LAP/OPEN CHOLECYSTECTOMY BASED ON ONGOING EVAL Plan discussed with: Patient ERNESTO OSORIO MD Dec 13, 2024 18:11
[2024-12-14] VITALS (9 sets, daily range): BP systolic 131–152; BP diastolic 80–111; PULSE 91–109; RESP 11–18; TEMP 97.3–98.6; O2SAT 92–100
--- NOTE | 2024-12-14 00:26 | DVHINCON2 ---
DATE OF CONSULTATION: 12/13/2024 HISTORY OF PRESENT ILLNESS: This patient is 34 years old, coming in with right upper quadrant pain, now slightly feeling better. No nausea, vomiting. No constipation, diarrhea. No hematemesis, melena. No bleeding per rectum. PAST MEDICAL HISTORY: Hypertension. No diabetes. PAST SURGICAL HISTORY: Cyst removal from the tailbone. PHYSICAL EXAMINATION: VITAL SIGNS: Afebrile, stable signs. HEENT: With no evidence of pallor, cyanosis, or jaundice. NECK: Supple, nontender with no thyromegaly, lymphadenopathy. CHEST AND LUNGS: Clear. HEART: Within normal limits. ABDOMEN: Soft, tender in the right upper quadrant with minimal rebound. EXTREMITIES: Unremarkable. NEUROLOGIC: Intact. CLINICAL IMPRESSION: Acute cholecystitis. PLAN: To consider laparoscopic, possible open cholecystectomy. Benefits, risks discussed and a consent obtained. Tl Mota MD RG/HEM TID: [id number] RECEIPT: [id number] cc: Nadia Lee MD
[2024-12-14 07:02] LABS: Basophils # (auto) 0 10 ^3/uL (0-0.2); Basophils % (auto) 0.2 % (0.0-2.0); Eosinophils # (auto) 0.1 10 ^3/uL (0-0.8); Eosinophils % (auto) 0.7 % (0.0-7.0); Hematocrit 33.6 % (36.0-46.0); Hemoglobin 11.3 g/dL (12.2-16.2); Lymphocytes # (auto) 1.8 10 ^3/uL (0.4-5.4); Lymphocytes % (auto) 14.9 % (10.0-50.0); Mean Corpuscular Hgb Conc. 33.7 g/dL (32.0-36.0); Mean Corpuscular Volume 86.1 fL (80.0-100.0); Monocytes % (auto) 8.6 % (0.0-12.0); Neutrophils # (auto) 8.9 10 ^3/uL (1.6-8.6); Neutrophils % (auto) 75.6 % (37.0-80.0); Platelet Count (auto) 208 10^3/uL (140-450); Red Cell Distribution Width 13.5 % (11.8-14.3); White Blood Cell 11.8 10^3/uL (4.4-10.8)
[2024-12-14 07:19] LABS: INR 1.06 (0.9-1.15); Prothrombin Time 11.2 sec (9.3-11.8)
[2024-12-14 07:42] LABS: Alanine Aminotransferase 16 U/L (7-40); Albumin 4.3 g/dL (3.2-4.8); Alkaline Phosphatase 59 U/L (46-116); Anion Gap 11 (5-15); BUN/Creatinine Ratio 9.3 (10.0-20.0); Bilirubin, Total 0.6 mg/dL (0.2-1.0); Calcium 9.4 mg/dL (8.7-10.4); Carbon Dioxide 21 mmol/L (20-31); Chloride 106 mmol/L (98-107); Sodium 138 mmol/L (136-145); Total Protein 6.7 g/dL (5.7-8.2)
[2024-12-14 07:44] LABS: Aspartate Aminotransferase < 8 U/L (13-40); Blood Urea Nitrogen 5 mg/dL (9-23); Glucose 111 mg/dL (74-106); Potassium 3.4 mmol/L (3.5-5.1)
[2024-12-14] MEDS ORDERED: fentaNYL CITRATE 100 MCG/2 ML VL ONE (12:14)
[2024-12-14] MEDS ORDERED: MIDAZOLAM HCL 2MG/2ML 2ml VIAL (1mg/ml) ONE (12:14)
--- NOTE | 2024-12-14 12:20 | DVHPN2 ---
Subjective Continue to complain of abdominal pain Reviewed: Care Plan, H&P, Labs, Medications, Previous Orders, Radiology, Other (Consultation) Changes from previous H/P or p: No Changes Objective Vitals Vital Signs Date Time Temp Pulse Resp B/P (MAP) Pulse Ox O2 Delivery O2 Flow Rate FiO2 12/14/24 09:00 98.5 106 18 148/84 (105) 96 98.5 12/14/24 08:00 Room Air* 0 21 Intake/Output Intake and Output 12/14/24 07:00 Intake Total 1150 ml Output Total 7 ml Balance 1143 ml Intake Oral 0 ml IV Total 1150 ml Output Urine Total 7 ml General Appearance: Alert, Oriented X3, Cooperative, No acute distress HEENT: Atraumatic Lungs: Clear to auscultation, Normal air movement Cardiovascular: Regular rate, Normal S1, Normal S2 Abdomen: Normal bowel sounds, Soft, No tenderness, Other (Right upper quadrant tenderness) Neuro: Normal speech, Cranial nerves 3-12 NL Psych/Mental Status: Mental status NL, Mood NL Medications Current Medications Medications Dose Ordered Sig/Key Route Start Time Stop Time Status Last Admin Dose Admin Sodium Chloride 10 ml Q8HR IV 12/13/24 06:00 12/14/24 06:44 10 ML Sodium Chloride 1,000 ml @ 120 mls/hr Q8H20M IV 12/12/24 22:15 12/14/24 10:06 120 MLS/HR Ondansetron HCl 4 mg Q4HP PRN IV 12/12/24 22:15 Acetaminophen 650 mg Q6HP PRN PO 12/12/24 22:15 Metronidazole 100 ml @ 100 mls/hr Q8HR IV 12/13/24 06:00 12/14/24 05:22 100 MLS/HR Ceftriaxone Sodium 50 ml @ 100 mls/hr DAILY@09 IV 12/13/24 09:00 12/14/24 10:06 100 MLS/HR Lisinopril 20 mg DAILY PO 12/13/24 10:00 12/13/24 08:51 20 MG Hydralazine HCl 10 mg Q6HP PRN IV 12/12/24 23:00 Docusate Sodium 100 mg BIDPRN PRN PO 12/13/24 17:45 12/13/24 17:54 100 MG Hydromorphone HCl 0.5 mg Q4HPRN PRN IV 12/13/24 18:15 Laboratory Results Laboratory Tests 12/14/24 06:18 Chemistry Test 12/14/24 06:18 Albumin 4.3 g/dL (3.2-4.8) Calcium Level 9.4 mg/dL (8.7-10.4) Total Protein 6.7 g/dL (5.7-8.2) Coagulation Test 12/14/24 06:18 Prothrombin Time 11.2 sec (9.3-11.8) Prothrombin Time INR 1.06 (0.9-1.15) Activated Partial Thromboplast Time 30.0 SEC (24.5-34.5) LFT Test 12/14/24 06:18 Alanine Aminotransferase (ALT) 16 U/L (7-40) Alkaline Phosphatase 59 U/L (46-116) Aspartate Amino Transferase (AST) < 8 U/L (13-40) L Total Bilirubin 0.6 mg/dL (0.2-1.0) Urinalysis Test 12/13/24 04:00 Urine Color Light-yellow (Yellow) Urine Clarity Clear (Clear) Urine pH 6.5 (5.0-9.0) Urine Specific [place] 1.015 (1.001-1.035) Urine Protein Negative (Negative) Urine Ketones Negative (Negative) Urine Blood Negative /uL (Negative) Urine Nitrite Negative (Negative) Urine Bilirubin Negative (Negative) Urine Urobilinogen Normal mg/dL (Negative) Urine Leukocyte Esterase Negative /uL (Negative) Urine RBC None seen /hpf (0 - 4) Urine Microscopic WBC < 1 /HPF (0-5) Urine Squamous Epithelial Cells Few /hpf (<5) Urine Bacteria None seen /hpf (None Seen) Urine Mucus Few (None Seen) Urine Glucose Normal mg/dL (Normal) Microbiology Microbiology Date/Time Source Procedure Growth Status 12/13/24 00:05 Blood Blood Culture - Preliminary NO GROWTH AFTER 24 HOURS OF INCUBATION. Resulted 12/12/24 22:35 Nose MRSA Screen - Final Complete Labs and/or images reviewed: Labs reviewed by me, Image(s) reviewed by me Assessment/Plan Assessment/Plan A 34-year-old female patient; with multiple comorbidities; who presented to emergency department with abdominal pain #Sepsis with leukocytosis due to acute cholecystitis; continue IV antibiotics; continue monitoring #Abdominal pain due to acute cholecystitis; reviewed the available imaging studies; surgery is following; cholecystectomy is planned today; patient is NPO; continue pain management as indicated; continue monitoring #Essential hypertension; resume home antihypertensive medications; continue monitoring #Asthma/Allergies; not in exacerbation/flare; continue monitoring #GERD; resume home PPI; continue monitoring #Morbid obesity; counseled the patient on the importance of adopting healthy lifestyle with diet and exercise to lose weight; continue monitoring Late Entry. This medical document was created using an electronic medical record system with computerized dictation system. Although this document has been carefully reviewed, there might still be some phonetic and typographical errors. These areas are purely typographical due to imperfections of the software programs, and do not reflect any compromise in the patient's medical care. Plan discussed with: Patient, Spouse, Other (Nurse) My Orders Orders - JULIETH VARELA MD Procedure Category Date Status Time Docusate Sodium PHA 12/13/24 In Process Capsule (Colace 17:45 Comprehensive LAB 12/15/24 Verified Metabolic Panel 04:00 Date of Service: Dec 14, 2024 Billing Provider: JULIETH VARELA MD Common Visit Codes: [id number] INP/OBS CARE(HIGH) JULIETH VARELA MD Dec 14, 2024 12:20
[2024-12-14] MEDS ORDERED: DexAMETHasone SOD PHOS 10MG/1ML VIAL INJ ONE (13:12)
[2024-12-14] MEDS ORDERED: PROPOFOL 10 MG/ML 20 ML IV ONE (13:12)
[2024-12-14] MEDS ORDERED: MEPERIDINE HCL (25 MG/ML) 1ML VIAL ONE (13:15)
[2024-12-14] MEDS: BUPIVACAINE 0.25% INJ 50ML VIAL ONE (13:34)
[2024-12-14] MEDS ORDERED: SUGAMMADEX 200mg/2ml Vial (100MG/ML) IV ONE (14:55)
[2024-12-14] MEDS ORDERED: ROCURONIUM 10MG/ML 10ML VIAL IV ONE (14:56)
--- NOTE | 2024-12-14 15:19 | DVHOP2 ---
Operative Report [id number] AC CHOLECYSTITIS, INTRAABD ABSCESS, DENSE ADHESIONS DRAINAGE OF INTRAABD ABSCESS LAP CHOLECYSTOSTOMY LAP CHOLECYSTECTOMY EBL 25 CC ONE DRAIN NO COMPLICATIONS ERNESTO OSORIO MD Dec 14, 2024 15:19
[2024-12-14] MEDS: ONDANSETRON HCL 4 MG/2 ML VIAL IV ONE (15:30)
[2024-12-14] MEDS ORDERED: HYDROmorphone HCL 2 MG/ML VL/or syr IV PRN (15:30)
[2024-12-14] MEDS: KETOROLAC TROMETH 30 MG/ML 1ML VIAL IV ONE (15:30)
[2024-12-14] MEDS ORDERED: MORPHINE SULFATE 4 MG/ML SYR/VIAL IV PRN (15:30)
[2024-12-14] MEDS ORDERED: MIDAZOLAM HCL 2MG/2ML 2ml VIAL (1mg/ml) IV PRN (15:30)
[2024-12-14] MEDS ORDERED: hydrALAZINE HCL 20 MG/ML VL IV PRN (15:30)
[2024-12-14] MEDS ORDERED: ePHEDrine SULFATE 50 MG/ML AMP IV PRN (15:30)
[2024-12-14] MEDS: HYDROmorphone HCL 2 MG/ML VL/or syr IV PRN (16:15)
--- NOTE | 2024-12-14 16:27 | DVHOP ---
DATE OF SURGERY: 12/14/2024 PREOPERATIVE DIAGNOSIS: Acute cholecystitis with intraabdominal abscess. POSTOPERATIVE DIAGNOSIS: Acute cholecystitis with intraabdominal abscess. PROCEDURE: Drainage of intra-abdominal abscess, lysis of adhesions and laparoscopic cholecystectomy. SURGEON: Tl Mota MD CHILDREN'S PROGRAM COORDINATOR: None. ANESTHESIA: General. ESTIMATED BLOOD LOSS: Close to 25 mL. DRAINS: One drain was used. COMPLICATIONS: No complications were encountered. DESCRIPTION OF PROCEDURE: The patient was prepped and draped in the usual sterile fashion in the supine position and a supraumbilical incision was applied, was taken down to the deeper tissues and the Veress needle was introduced and CO2 insufflation was started to a pressure of 15 mmHg. The needle was withdrawn, replaced by the 5 mm trocar and a telescope was introduced and the gallbladder was visualized, was found acutely inflamed, distended and wrapped around with the omental tissue and the duodenum and the stomach were kept out of harm's at all times. A 12 mm port was applied close to the xiphisternum and two 5 mm ports were applied more laterally in the subcostal line. With the instruments in place, the patient in the head up and right upper lateral position, the gallbladder had to be decompressed using the needle and syringe assembly and laparoscopic cholecystostomy was performed as well. After this was done, it was possible to grasp the fundus with a clamp and then the dissection was carried out with blunt dissection and suction device to allow the omental tissue to be out from the gallbladder and this allowed the infundibulum to be exposed. It was grasped with a clamp as well and then the cystic duct and artery were separately dissected out and clipped proximally and distally using the Hem-o-Amanda clips and divided in between making sure CBD was kept out of harm's at all times. The gallbladder was detached from the liver bed using Harmonic dissection, placed in the EndoCatch bag and removed from the xiphisternal wound without any complication. Hemostasis was secured. Irrigation fluid was removed. The port sites were free from bleeding. SNoW coagulant and Sherry powder was applied to the liver bed to sustain the hemostasis and then a size 19 Livan drainage tube was placed to drain the liver bed, bringing out from the lateral subcostal incision. After that, one port had been withdrawn, securing the drain with a nylon suture. Dressing was applied for the drain site. After this, the patient was placed back supine. The trocar sites were free from bleeding. EndoClose suture used for the fascial closure of the xiphisternal wound. All the ports were withdrawn after all the CO2 had been let out and the patient was placed back supine. The remainder of the wounds were brought together using 3-0 Monocryl suture in a subcuticular fashion. Surgical glue was applied. The patient tolerated the procedure well and was taken back to recovery room in stable condition. MD FEMI Mendoza/EVELYN TID: [id number] RECEIPT: [id number] cc: Bipin Patino
[2024-12-14] MEDS: POTASSIUM EFFERVESENT TAB 25 MEQ PO ONE (16:45)
[2024-12-14] MEDS: MORPHINE SULFATE INJ 2 MG/ml SYRG IV PRN (17:53)
[2024-12-15] VITALS (8 sets, daily range): BP systolic 124–158; BP diastolic 77–95; PULSE 83–95; RESP 17–18; TEMP 97.6–98.6; O2SAT 92–97
[2024-12-15 07:22] LABS: Basophils # (auto) 0 10 ^3/uL (0-0.2); Eosinophils # (auto) 0 10 ^3/uL (0-0.8); Hematocrit 35.6 % (36.0-46.0); Hemoglobin 11.5 g/dL (12.2-16.2); Lymphocytes # (auto) 1.1 10 ^3/uL (0.4-5.4); Lymphocytes % (auto) 9.1 % (10.0-50.0); Mean Corpuscular Hemoglobin 28.5 pg (28.0-32.0); Mean Corpuscular Hgb Conc. 32.3 g/dL (32.0-36.0); Mean Corpuscular Volume 88.3 fL (80.0-100.0); Monocytes # (auto) 0.7 10 ^3/uL (0-1.3); Monocytes % (auto) 5.9 % (0.0-12.0); Neutrophils # (auto) 10.3 10 ^3/uL (1.6-8.6); Platelet Count (auto) 259 10^3/uL (140-450); Red Blood Cells 4.03 10^6/uL (4.0-5.20); Red Cell Distribution Width 13.7 % (11.8-14.3); White Blood Cell 12.2 10^3/uL (4.4-10.8)
[2024-12-15 07:50] LABS: Alanine Aminotransferase 32 U/L (7-40); Albumin 4.5 g/dL (3.2-4.8); Alkaline Phosphatase 64 U/L (46-116); Anion Gap 11 (5-15); BUN/Creatinine Ratio 10.2 (10.0-20.0); Bilirubin, Total 0.3 mg/dL (0.2-1.0); Carbon Dioxide 21 mmol/L (20-31); Chloride 105 mmol/L (98-107); Magnesium 2.2 mg/dL (1.6-2.6); Potassium 4.2 mmol/L (3.5-5.1); Sodium 137 mmol/L (136-145); Total Protein 7.2 g/dL (5.7-8.2)
[2024-12-15 07:53] LABS: Aspartate Aminotransferase 44 U/L (13-40); Blood Urea Nitrogen 6 mg/dL (9-23); Glucose 118 mg/dL (74-106)
[2024-12-15] MEDS: HYDROcodone-ACET 10/325MG TAB PO PRN (14:53)
--- NOTE | 2024-12-15 16:56 | DVHPN2 ---
Subjective Seen and examined at bedside, feeling better. Spouse at bedside. Possible DC Tomorrow. Reviewed: Care Plan, H&P, Labs, Medications, Previous Orders, Radiology, Other (Consultation) Changes from previous H/P or p: No Changes Eyes: No Pain, No Vision change, No Conjunctivae inflammation, No Eyelid inflammation, No Other, No Redness ENT: No Ear pain, No Ear discharge, No Nose pain, No Nose discharge, No Nose congestion, No Mouth pain, No Mouth swelling, No Throat pain, No Throat swelling, No Other Cardiovascular: No Chest Pain, No Palpitations, No Orthopnea, No Paroxysmal Noc. Dyspnea, No Edema, No Lt Headedness, No Other Respiratory: No Cough, No Dry, No Shortness of breath, No SOB with excertion, No Wheezing, No Hemoptysis, No Pleuritic Pain, No Sputum, No Other Gastrointestinal: Nausea, Abdominal Pain, Other (RUQ and epigastric pain) Genitourinary: No Dysuria, No Frequency, No Incontinence, No Hematuria, No Retention, No Other Musculoskeletal: No other, No neck pain, No shoulder pain, No arm pain, No back pain, No hand pain, No leg pain, No foot pain Skin: No Rash, No Lesions, No Jaundice, No Bruising, No Other Objective Vitals Vital Signs Date Time Temp Pulse Resp B/P (MAP) Pulse Ox O2 Delivery O2 Flow Rate FiO2 12/15/24 13:00 97.9 89 17 142/85 (104) 96 97.9 12/15/24 08:00 Room Air* 0 21 Intake/Output Intake and Output 12/15/24 07:00 Intake Total 650 ml Balance 650 ml Intake Oral 600 ml IV Total 50 ml # Voids 4 General Appearance: Alert, Oriented X3, Cooperative, No acute distress HEENT: Atraumatic Lungs: Clear to auscultation, Normal air movement Cardiovascular: Regular rate, Normal S1, Normal S2 Abdomen: Other (Surgical dressing CDI) Neuro: Normal speech, Cranial nerves 3-12 NL Psych/Mental Status: Mental status NL, Mood NL Medications Current Medications Medications Dose Ordered Sig/Key Route Start Time Stop Time Status Last Admin Dose Admin Sodium Chloride 10 ml Q8HR IV 12/13/24 06:00 12/15/24 14:00 10 ML Sodium Chloride 1,000 ml @ 120 mls/hr Q8H20M IV 12/12/24 22:15 12/15/24 05:39 120 MLS/HR Ondansetron HCl 4 mg Q4HP PRN IV 12/12/24 22:15 Acetaminophen 650 mg Q6HP PRN PO 12/12/24 22:15 Metronidazole 100 ml @ 100 mls/hr Q8HR IV 12/13/24 06:00 12/15/24 14:53 100 MLS/HR Ceftriaxone Sodium 50 ml @ 100 mls/hr DAILY@09 IV 12/13/24 09:00 12/15/24 09:22 100 MLS/HR Lisinopril 20 mg DAILY PO 12/13/24 10:00 12/15/24 09:22 20 MG Hydralazine HCl 10 mg Q6HP PRN IV 12/12/24 23:00 Docusate Sodium 100 mg BIDPRN PRN PO 12/13/24 17:45 12/13/24 17:54 100 MG Hydromorphone HCl 0.5 mg Q4HPRN PRN IV 12/13/24 18:15 Hold 12/14/24 16:15 0.5 MG Morphine Sulfate 2 mg Q4HPRN PRN IV 12/14/24 17:15 12/14/24 17:53 2 MG Acetaminophen/ Hydrocodone Bitart 1 tab Q6HP PRN PO 12/14/24 17:15 12/15/24 14:53 1 TAB Laboratory Results Laboratory Tests 12/15/24 06:13 Chemistry Test 12/15/24 06:13 Albumin 4.5 g/dL (3.2-4.8) Calcium Level 10.0 mg/dL (8.7-10.4) Magnesium Level 2.2 mg/dL (1.6-2.6) Total Protein 7.2 g/dL (5.7-8.2) LFT Test 12/15/24 06:13 Alanine Aminotransferase (ALT) 32 U/L (7-40) Alkaline Phosphatase 64 U/L (46-116) Aspartate Amino Transferase (AST) 44 U/L (13-40) H Total Bilirubin 0.3 mg/dL (0.2-1.0) Urinalysis Test 12/13/24 04:00 Urine Color Light-yellow (Yellow) Urine Clarity Clear (Clear) Urine pH 6.5 (5.0-9.0) Urine Specific [place] 1.015 (1.001-1.035) Urine Protein Negative (Negative) Urine Ketones Negative (Negative) Urine Blood Negative /uL (Negative) Urine Nitrite Negative (Negative) Urine Bilirubin Negative (Negative) Urine Urobilinogen Normal mg/dL (Negative) Urine Leukocyte Esterase Negative /uL (Negative) Urine RBC None seen /hpf (0 - 4) Urine Microscopic WBC < 1 /HPF (0-5) Urine Squamous Epithelial Cells Few /hpf (<5) Urine Bacteria None seen /hpf (None Seen) Urine Mucus Few (None Seen) Urine Glucose Normal mg/dL (Normal) Microbiology Microbiology Date/Time Source Procedure Growth Status 12/13/24 04:00 Voided Urine Urine Culture - Final Complete 12/13/24 00:05 Blood Blood Culture - Preliminary NO GROWTH AFTER 48 HOURS OF INCUBATION. Resulted 12/12/24 22:35 Nose MRSA Screen - Final Complete Assessment/Plan Assessment/Plan #Sepsis with leukocytosis due to acute cholecystitis; continue IV antibiotics; continue monitoring. POD1. Encouraged Incentive spirometer #Essential hypertension; resume home antihypertensive medications; continue monitoring #Asthma/Allergies; not in exacerbation/flare; continue monitoring #GERD; resume home PPI; continue monitoring #Morbid obesity; counseled the patient on the importance of adopting healthy lifestyle with diet and exercise to lose weight; continue monitoring Plan discussed with: Patient, Spouse My Orders Orders - REBEKAH ENRIQUEZ MD Procedure Category Date Status Time Oob To Chair [facility] 12/15/24 Verified 16:54 Complete Blood Count LAB 12/16/24 Verified 04:00 Comprehensive LAB 12/16/24 Verified Metabolic Panel 04:00 Date of Service: Dec 15, 2024 Billing Provider: REBEKAH ENRIQUEZ MD Common Visit Codes: [id number] INP/OBS CARE(HIGH) REBEKAH ENRIQUEZ MD Dec 15, 2024 16:56
--- NOTE | 2024-12-15 17:26 | DVHPN2 ---
Progress Note Date Seen: Dec 15, 2024 Medical Necessity Reason Pt with a Central, PICC or Fol: No Objective vital signs Vital Sign Date Time Temp Pulse Resp B/P (MAP) Pulse Ox O2 Delivery O2 Flow Rate FiO2 12/15/24 13:00 97.9 89 17 142/85 (104) 96 97.9 12/15/24 08:00 Room Air* 0 21 Total Intake and Output 12/14/24 12/14/24 12/15/24 15:00 23:00 07:00 Intake Total 50 ml 0 ml 600 ml Balance 50 ml 0 ml 600 ml medications Current Medications Medications Dose Ordered Sig/Key Route Start Time Stop Time Status Last Admin Dose Admin Sodium Chloride 10 ml Q8HR IV 12/13/24 06:00 12/15/24 14:00 10 ML Ondansetron HCl 4 mg Q4HP PRN IV 12/12/24 22:15 Acetaminophen 650 mg Q6HP PRN PO 12/12/24 22:15 Metronidazole 100 ml @ 100 mls/hr Q8HR IV 12/13/24 06:00 12/15/24 14:53 100 MLS/HR Ceftriaxone Sodium 50 ml @ 100 mls/hr DAILY@09 IV 12/13/24 09:00 12/15/24 09:22 100 MLS/HR Lisinopril 20 mg DAILY PO 12/13/24 10:00 12/15/24 09:22 20 MG Hydralazine HCl 10 mg Q6HP PRN IV 12/12/24 23:00 Docusate Sodium 100 mg BIDPRN PRN PO 12/13/24 17:45 12/13/24 17:54 100 MG Hydromorphone HCl 0.5 mg Q4HPRN PRN IV 12/13/24 18:15 Hold 12/14/24 16:15 0.5 MG Morphine Sulfate 2 mg Q4HPRN PRN IV 12/14/24 17:15 12/14/24 17:53 2 MG Acetaminophen/ Hydrocodone Bitart 1 tab Q6HP PRN PO 12/14/24 17:15 12/15/24 14:53 1 TAB laboratory and microbiology Laboratory Tests 12/15/24 06:13 Test 12/15/24 06:13 Range/Units Serum Glucose 118 H 74-106 mg/dL Microbiology Date/Time Source Procedure Growth Status 12/13/24 04:00 Voided Urine Urine Culture - Final Complete 12/13/24 00:05 Blood Blood Culture - Preliminary NO GROWTH AFTER 48 HOURS OF INCUBATION. Resulted 12/12/24 22:35 Nose MRSA Screen - Final Complete Problem List/Assessment/Plan Problem List/Assessment/Plan AFEBRILE VSS ABD SOFT WOUNDS HEALING S/P LAP CHOLECYSTECTOMY JULIO DIET DRAIN 20 CC SEROUS LFT WNL NO COMPLICATIONS ADVANCE DIET JULIO Plan discussed with: Patient My Orders My Orders Orders - ERNESTO OSORIO MD Procedure Category Date Status Time Full Liq Diet DIET 12/15/24 Transmitted Breakfast ERNESTO OSORIO MD Dec 15, 2024 17:26
[2024-12-16 01:00] VITALS: BP 127/70; PULSE 72; RESP 20; TEMP 98; O2SAT 96
[2024-12-16 05:00] VITALS: BP 116/68; PULSE 74; RESP 18; TEMP 97.8; O2SAT 97
[2024-12-16 06:29] LABS: Basophils # (auto) 0 10 ^3/uL (0-0.2); Basophils % (auto) 0.3 % (0.0-2.0); Eosinophils # (auto) 0.1 10 ^3/uL (0-0.8); Eosinophils % (auto) 0.8 % (0.0-7.0); Hematocrit 32.7 % (36.0-46.0); Hemoglobin 10.9 g/dL (12.2-16.2); Lymphocytes # (auto) 2.6 10 ^3/uL (0.4-5.4); Lymphocytes % (auto) 32.3 % (10.0-50.0); Mean Corpuscular Hemoglobin 28.9 pg (28.0-32.0); Mean Corpuscular Hgb Conc. 33.4 g/dL (32.0-36.0); Mean Corpuscular Volume 86.7 fL (80.0-100.0); Monocytes # (auto) 0.6 10 ^3/uL (0-1.3); Monocytes % (auto) 7.3 % (0.0-12.0); Neutrophils # (auto) 4.7 10 ^3/uL (1.6-8.6); Neutrophils % (auto) 59.3 % (37.0-80.0); Nucleated Red Blood Cells % 0.1 %; Platelet Count (auto) 250 10^3/uL (140-450); Red Blood Cells 3.77 10^6/uL (4.0-5.20); Red Cell Distribution Width 13.5 % (11.8-14.3)
[2024-12-16 06:50] LABS: Alanine Aminotransferase 33 U/L (7-40); Alkaline Phosphatase 49 U/L (46-116); Anion Gap 9 (5-15); BUN/Creatinine Ratio 15.2 (10.0-20.0); Blood Urea Nitrogen 10 mg/dL (9-23); Calcium 9.5 mg/dL (8.7-10.4); Carbon Dioxide 26 mmol/L (20-31); Chloride 104 mmol/L (98-107); Glucose 86 mg/dL (74-106); Sodium 139 mmol/L (136-145); Total Protein 6.2 g/dL (5.7-8.2)
[2024-12-16 06:51] LABS: Aspartate Aminotransferase 26 U/L (13-40); Bilirubin, Total 0.3 mg/dL (0.2-1.0)
[2024-12-16 07:07] LABS: Potassium 3.5 mmol/L (3.5-5.1)
[2024-12-16] MEDS: SUCCINYLCHOLINE CHLORIDE 20 MG/ML 10ML VIAL IV ONE (08:45)
[2024-12-16 09:36] VITALS: BP 124/75; PULSE 82; RESP 16; TEMP 97.9; O2SAT 96
[2024-12-16] MEDS ORDERED: AUG875T PO (11:58)
--- NOTE | 2024-12-16 12:02 | DVHDS2 ---
Discharge Summary Date of Admission Dec 12, 2024 at 22:06 Date of Discharge: Dec 16, 2024 Admitting Diagnosis Acute cholecystitis with intraabdominal abscess Labs/Diagnostic Data: Laboratory Results Test 12/16/24 05:36 12/15/24 06:13 12/14/24 06:18 12/13/24 05:06 White Blood Count 8.0 10^3/uL (4.4-10.8) Red Blood Count 3.77 10^6/uL (4.0-5.20) Hemoglobin 10.9 g/dL (12.2-16.2) Hematocrit 32.7 % (36.0-46.0) Mean Corpuscular Volume 86.7 fL (80.0-100.0) Mean Corpuscular Hemoglobin 28.9 pg (28.0-32.0) Mean Corpuscular Hemoglobin Concent 33.4 g/dL (32.0-36.0) Red Cell Distribution Width 13.5 % (11.8-14.3) Platelet Count 250 10^3/uL (140-450) Mean Platelet Volume 9.2 fL (6.9-10.8) Neutrophils (%) (Auto) 59.3 % (37.0-80.0) Lymphocytes (%) (Auto) 32.3 % (10.0-50.0) Monocytes (%) (Auto) 7.3 % (0.0-12.0) Eosinophils (%) (Auto) 0.8 % (0.0-7.0) Basophils (%) (Auto) 0.3 % (0.0-2.0) Neutrophils # (Auto) 4.7 10 ^3/uL (1.6-8.6) Lymphocytes # (Auto) 2.6 10 ^3/uL (0.4-5.4) Monocytes # (Auto) 0.6 10 ^3/uL (0-1.3) Eosinophils # (Auto) 0.1 10 ^3/uL (0-0.8) Basophils # (Auto) 0 10 ^3/uL (0-0.2) Nucleated Red Blood Cells 0.1 % Sodium Level 139 mmol/L (136-145) Potassium Level 3.5 mmol/L (3.5-5.1) Chloride Level 104 mmol/L (98-107) Carbon Dioxide Level 26 mmol/L (20-31) Anion Gap 9 (5-15) Blood Urea Nitrogen 10 mg/dL (9-23) Creatinine 0.66 mg/dL (0.550-1.02) Glomerular Filtration Rate Calc 117 mL/min (>90) BUN/Creatinine Ratio 15.2 (10.0-20.0) Serum Glucose 86 mg/dL (74-106) Calcium Level 9.5 mg/dL (8.7-10.4) Total Bilirubin 0.3 mg/dL (0.2-1.0) Aspartate Amino Transferase (AST) 26 U/L (13-40) Alanine Aminotransferase (ALT) 33 U/L (7-40) Alkaline Phosphatase 49 U/L (46-116) Total Protein 6.2 g/dL (5.7-8.2) Albumin 4.0 g/dL (3.2-4.8) Magnesium Level 2.2 mg/dL (1.6-2.6) Prothrombin Time 11.2 sec (9.3-11.8) Prothrombin Time INR 1.06 (0.9-1.15) Activated Partial Thromboplast Time 30.0 SEC (24.5-34.5) Beta HCG, Quantitative 0.1 mIU/mL (1.5-4.2) Test 12/13/24 04:00 12/12/24 23:30 12/12/24 22:24 12/12/24 15:46 Urine Color Light-yellow (Yellow) Urine Clarity Clear (Clear) Urine pH 6.5 (5.0-9.0) Urine Specific [place] 1.015 (1.001-1.035) Urine Protein Negative (Negative) Urine Ketones Negative (Negative) Urine Blood Negative /uL (Negative) Urine Nitrite Negative (Negative) Urine Bilirubin Negative (Negative) Urine Urobilinogen Normal mg/dL (Negative) Urine Leukocyte Esterase Negative /uL (Negative) Urine RBC None seen /hpf (0 - 4) Urine Microscopic WBC < 1 /HPF (0-5) Urine Squamous Epithelial Cells Few /hpf (<5) Urine Bacteria None seen /hpf (None Seen) Urine Mucus Few (None Seen) Urine Glucose Normal mg/dL (Normal) Urine Opiates Screen Pos (NEGATIVE) Urine Fentanyl Screen Neg (NEGATIVE) Urine Barbiturates Screen Neg (NEGATIVE) Urine Phencyclidine Screen Neg (NEGATIVE) Urine Amphetamines Screen Neg (NEGATIVE) Urine Benzodiazepines Screen Neg (NEGATIVE) Urine Cocaine Screen Neg (NEGATIVE) Urine Cannabinoids Screen Neg (NEGATIVE) Influenza Type A Antigen Negative (Negative) Influenza Type B Antigen Negative (Negative) SARS-CoV-2 Antigen (Rapid) Negative (NEGATIVE) Ammonia < 10 umol/L (11-32) Plasma/Serum Blood Alcohol 4.0 mg/dL (<10) Troponin I High Sensitivity < 3 ng/L (</=34) Lipase 41 U/L (12-53) Thyroid Stimulating Hormone (TSH) 1.54 uIU/mL (0.55-4.78) Other Laboratory Tests 12/16/24 05:36 Brief Hx & Hospital Course: This patient is 34 years old, coming in with right upper quadrant pain. Patient was found to have acute cholecystitis with abdominal abscess. Patient underwent cholecystectomy see report below. Patient has a STEVE drain in place. Patient is feeling better will be discharged home with drain and Augmentin to be seen in surgical clinic for drain removal. Patient encouraged to do incentive spirometer at home to prevent atelectasis and pneumonia. Operations or Procedures DATE OF SURGERY: 12/14/2024 PREOPERATIVE DIAGNOSIS: Acute cholecystitis with intraabdominal abscess. POSTOPERATIVE DIAGNOSIS: Acute cholecystitis with intraabdominal abscess. PROCEDURE: Drainage of intra-abdominal abscess, lysis of adhesions and laparoscopic cholecystectomy. SURGEON: Tl Mota MD NEEDLE GRADER: None. ANESTHESIA: General. ESTIMATED BLOOD LOSS: Close to 25 mL. DRAINS: One drain was used. COMPLICATIONS: No complications were encountered. DESCRIPTION OF PROCEDURE: The patient was prepped and draped in the usual sterile fashion in the supine position and a supraumbilical incision was applied, was taken down to the deeper tissues and the Veress needle was introduced and CO2 insufflation was started to a pressure of 15 mmHg. The needle was withdrawn, replaced by the 5 mm trocar and a telescope was introduced and the gallbladder was visualized, was found acutely inflamed, distended and wrapped around with the omental tissue and the duodenum and the stomach were kept out of harm's at all times. A 12 mm port was applied close to the xiphisternum and two 5 mm ports were applied more laterally in the subcostal line. With the instruments in place, the patient in the head up and right upper lateral position, the gallbladder had to be decompressed using the needle and syringe assembly and laparoscopic cholecystostomy was performed as well. After this was done, it was possible to grasp the fundus with a clamp and then the dissection was carried out with blunt dissection and suction device to allow the omental tissue to be out from the gallbladder and this allowed the infundibulum to be exposed. It was grasped with a clamp as well and then the cystic duct and artery were separately dissected out and clipped proximally and distally using the Hem-o-Amanda clips and divided in between making sure CBD was kept out of harm's at all times. The gallbladder was detached from the liver bed using Harmonic dissection, placed in the EndoCatch bag and removed from the xiphisternal wound without any complication. Hemostasis was secured. Irrigation fluid was removed. The port sites were free from bleeding. SNoW coagulant and Sherry powder was applied to the liver bed to sustain the hemostasis and then a size 19 Livan drainage tube was placed to drain the liver bed, bringing out from the lateral subcostal incision. After that, one port had been withdrawn, securing the drain with a nylon suture. Dressing was applied for the drain site. After this, the patient was placed back supine. The trocar sites were free from bleeding. EndoClose suture used for the fascial closure of the xiphisternal wound. All the ports were withdrawn after all the CO2 had been let out and the patient was placed back supine. The remainder of the wounds were brought together using 3-0 Monocryl suture in a subcuticular fashion. Surgical glue was applied. The patient tolerated the procedure well and was taken back to recovery room in stable condition. Condition at Discharge: Poor Final Diagnosis/Problems List Acute cholecystitis with intraabdominal abscess Discharge Disposition: Home Discharge Instruct/Medications Diet: See Comment Diet comment: Low Fat Activity: Light activity Follow Up/Referral: Surgical Clinic Medications: Augmentin Tylenol for Pain Discharge Statement: "Patient was advised to return to the ER or call 911 if any headaches, dizziness, shortness of breath, chest pain, abdominal pain, bleeding, fevers, or worsening of medical condition. Patient was counseled about treatment plan, medications, possible side effects, patientverbalized understanding. All questions were answered to the best of my ability. This discharge took greater then 30 minutes in planning, reviewing documentation, counseling the patient, and discussing with other team members." ASSESSMENT ASSESSMENT Assessment Date of Service: Dec 16, 2024 Billing Provider: REBEKAH ENRIQUEZ MD Common Visit Codes: [id number] DISCH DAY >30min REBEKAH ENRIQUEZ MD Dec 16, 2024 12:02
[2024-12-16 13:17] VITALS: BP 124/75; TEMP 36.6
[2024-12-16 14:17] VITALS: BP 127/90; PULSE 92; RESP 16; TEMP 97.9; O2SAT 98
--- NOTE | 2024-12-16 14:34 | ECG ---
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
== END 2024-12-16 15:34 | disposition home or self-care (01) | DRG 853 ==
LOC: ER 14:02 → OVERFLOW 22:06 → EAST 12-13 09:13
PROVIDERS: ADMIT Internal Medicine; ATTEND Internal Medicine
PROC: 0W9F4ZZ Drainage of Abdominal Wall, Percutaneous Endoscopic Approach (ICD-10-PCS; 2024-12-14)
PROC: 0FT44ZZ Resection of Gallbladder, Percutaneous Endoscopic Approach (ICD-10-PCS; principal; 2024-12-14 13:27)
DX: A41.9 Sepsis, unspecified organism (principal); K65.1 Peritoneal abscess; Z68.43 Body mass index [BMI] 50.0-59.9, adult; K80.00 Calculus of gallbladder with acute cholecystitis without obstruction; E66.01 Morbid (severe) obesity due to excess calories; K66.0 Peritoneal adhesions (postprocedural) (postinfection); K21.9 Gastro-esophageal reflux disease without esophagitis; Z20.822 Contact with and (suspected) exposure to COVID-19; J45.909 Unspecified asthma, uncomplicated; I10 Essential (primary) hypertension; K76.0 Fatty (change of) liver, not elsewhere classified; Z79.1 Long term (current) use of non-steroidal anti-inflammatories (NSAID); Z79.899 Other long term (current) drug therapy; Z82.49 Family history of ischemic heart disease and other diseases of the circulatory system; Z82.5 Family history of asthma and other chronic lower respiratory diseases; Z79.2 Long term (current) use of antibiotics; Z79.891 Long term (current) use of opiate analgesic
CPT/HCPCS: 36415; 71046; 76705; 80053; 80307; 80320; 81001; 82140; 83690; 83735; 84443; 84484; 84702; 85025; 85610; 85730; 87040; 87081; 87086; 87426; 87804; 93005; 96361; 96365; 96375; G0378; J0330; J1100; J2250; J2405; J2704; J3490